=== PATIENT | female | born 1985 | race Caucasian/White ===

== ENCOUNTER 2020-01-28 16:28 | Emergency (ER) | payer MEDICAID, OTHER, SELFPAY ==
[~2020-01-28] VITALS: Ht 167.6 cm; Wt 105.2 kg
[2020-01-28 16:32] VITALS: BP 143/86
== END 2020-01-28 18:01 | disposition home or self-care (01) ==
LOC: EEVIPCON 16:28 → MED 16:28
DX: J98.01 Acute bronchospasm (principal); Z20.828 Contact with and (suspected) exposure to other viral communicable diseases; B34.9 Viral infection, unspecified; H92.02 Otalgia, left ear
CPT/HCPCS: 36415; 71045; 87635; 99284; Q0092

== ENCOUNTER 2020-06-02 17:03 | Emergency (ER) | payer MEDICAID, SELFPAY ==
[~2020-06-02] VITALS: Ht 167.6 cm; Wt 90.7 kg
[2020-06-02 17:12] VITALS: BP 157/94
[2020-06-02] MEDS ORDERED: predniSONE 20 MG TAB PO ONE (17:30)
--- NOTE | 2020-06-02 18:40 | NUR ---
PT C/O CHEST SORENESS WITH COUGH X 3 WEEKS. WAS SEEN PREVIOUSLY IN ER AND DIAGNOSED WITH BRONCHITIS. PT TESTED NEGATIVE FOR COVID PREVIOSULY. PT ALSO REPORTS THAT SHE HAS SEASONAL ALLERGIES. PT DENIES SOB OR FEVER.
--- NOTE | 2020-06-02 18:56 | NUR ---
COVID SWAB COLLECTED, PREDNISONE ADMINISTERED
[2020-06-02 18:58] VITALS: BP 151/83
--- NOTE | 2020-06-02 18:58 | NUR ---
Patient discharged with v/s stable. Written and verbal after care instructions given and explained. Patient alert, oriented and verbalized understanding of instructions. Ambulatory with steady gait. All questions addressed prior to discharge. ID band removed. Patient advised to follow up with PMD. Rx of PRENISONE, ALBUTEROL, AND GUAIATUSSIN given. Patient educated on indication of medication including possible reaction and side effects. Opportunity to ask questions provided and answered. PT GIVEN NUMBER FOR INFECTION CONTROL AND INSTRUCTED THAT SHE WILL RECIEVE CALL IF RESULT IS POTIVE PT GIVEN EXCUSE FOR WORK INSTRUCTED TO PRACTICE SAFE COVID PRECAUTIONS
== END 2020-06-02 18:58 | disposition home or self-care (01) ==
LOC: MED 17:03
DX: B34.9 Viral infection, unspecified (principal); J20.9 Acute bronchitis, unspecified; Z20.828 Contact with and (suspected) exposure to other viral communicable diseases
CPT/HCPCS: 71045; 99284; J7512; U0003

== ENCOUNTER 2022-04-28 16:44 | Emergency (ER) | payer OTHER ==
[~2022-04-28] VITALS: Ht 167.6 cm; Wt 102.5 kg
[2022-04-28 17:07] VITALS: BP 141/104
[2022-04-28] MEDS ORDERED: IBUPROFEN 600 MG TAB PO ONE (17:45)
[2022-04-28] MEDS ORDERED: IBUP-2213 PO (17:51)
[2022-04-28] MEDS ORDERED: CYCL-711 PO (17:51)
[2022-04-28] MEDS ORDERED: LID5T TP (17:51)
[2022-04-28] MEDS ORDERED: IBUPROFEN 600 MG TAB ONE (18:26)
== END 2022-04-28 19:08 | disposition home or self-care (01) ==
LOC: MED 16:44
DX: S16.1XXA Strain of muscle, fascia and tendon at neck level, initial encounter (principal); S46.812A Strain of other muscles, fascia and tendons at shoulder and upper arm level, left arm, initial encounter; R03.0 Elevated blood-pressure reading, without diagnosis of hypertension; Z79.899 Other long term (current) drug therapy; V89.2XXA Person injured in unspecified motor-vehicle accident, traffic, initial encounter; Y93.89 Activity, other specified; Y92.89 Other specified places as the place of occurrence of the external cause; Y99.8 Other external cause status
CPT/HCPCS: 99283

== ENCOUNTER 2023-03-22 07:00 | Emergency (ER) | payer OTHER ==
[~2023-03-22] VITALS: Ht 167.6 cm; Wt 102.1 kg
[~2023-03-22 07:00] MED LIST: CYCL-711 PO; IBUP-2213 PO; LID5T TP
[2023-03-22 07:15] VITALS: BP 125/73
--- NOTE | 2023-03-22 07:28 | NUR ---
Patient ambulated to bed 5.
--- NOTE | 2023-03-22 07:40 | NUR ---
38 y/o female bib self for SOB, patient was referred here by PCP. Patient has been having SOB x 6 weeks. Patient was prescribed antibiotics and given a steroid injection but continues the same. Patient denies any fevers or chills. Patient reports white phlegm when coughing. Medical History: Asthma NKDA
--- NOTE | 2023-03-22 07:50 | NUR ---
Patient being evaluated by physician at bedside.
[2023-03-22] MEDS ORDERED: ALBUTEROL SULFATE/IPRATROPIU 3 ML SOL IH ONE (07:55)
[2023-03-22] MEDS ORDERED: predniSONE 20 MG TAB PO ONE (07:55)
--- NOTE | 2023-03-22 08:12 | NUR ---
RT at bedside.
[2023-03-22] MEDS ORDERED: ALBU0.0912 INH (08:47)
[2023-03-22] MEDS ORDERED: PRED20TA5 PO (08:47)
== END 2023-03-22 09:18 | disposition home or self-care (01) ==
LOC: MED 07:00
DX: J45.901 Unspecified asthma with (acute) exacerbation (principal); Z79.899 Other long term (current) drug therapy
CPT/HCPCS: 94640; 99283; J7512

== ENCOUNTER 2024-06-27 09:26 | Emergency (ER) | payer MEDICAID, OTHER ==
[~2024-06-27] VITALS: Ht 167.6 cm; Wt 100.3 kg
[~2024-06-27 09:26] MED LIST changes: +ALBU0.0912 INH; +PRED20TA5 PO
[2024-06-27 09:40] VITALS: BP 130/84; PULSE 78; RESP 18; TEMP 98; O2SAT 97
[2024-06-27] MEDS ORDERED: CARB15DR61 OT (10:12)
[2024-06-27 10:30] VITALS: BP 130/84; PULSE 78; RESP 18; TEMP 98; O2SAT 97
== END 2024-06-27 11:52 | disposition home or self-care (01) ==
LOC: MED 09:26
DX: R20.0 Anesthesia of skin (principal); R25.3 Fasciculation; K13.0 Diseases of lips; T78.1XXA Other adverse food reactions, not elsewhere classified, initial encounter; H61.23 Impacted cerumen, bilateral; J45.909 Unspecified asthma, uncomplicated; Z79.899 Other long term (current) drug therapy; X58.XXXA Exposure to other specified factors, initial encounter
CPT/HCPCS: 82948; 99282